=== PATIENT | male | born 1980 | race Caucasian/White ===

== ENCOUNTER 2016-02-14 11:46 | Inpatient (IN) | payer OTHER ==
[~2016-02-14] VITALS: Ht 180.3 cm; Wt 79.4 kg
[~2016-02-14 11:46] MED LIST: CARBIDOPA/LEVOD1 TA1 PO; DICYCLOMINE HCL20 MG PO; DILANTIN100 MG PO; METHOCARBAMOL750 M1 PO; PREDNICOT20 MG PO; TRAZODONE50 MG PO; VICO10300 PO; ZITHROMAX Z PA250 MG PO
[2016-02-14 13:34] LABS: BILIRUBIN NEGATIVE (NEGATIVE); BLOOD NEGATIVE (NEGATIVE); CLARITY SL CLOUDY (CLEAR); COLOR YELLOW (YELLOW); GLUCOSE NEGATIVE (NEGATIVE); KETONE NEGATIVE (NEGATIVE); LEUKO ESTERASE NEGATIVE (NEGATIVE); NITRITE NEGATIVE (NEGATIVE); PROTEIN NEGATIVE (NEGATIVE); SPECIFIC GRAVITY 1.025 (1.005-1.030)
[2016-02-14 13:39] LABS: URINE AMPHETAMINES < 1000 (1000ng/ml); URINE BARBITURATES < 200 (200ng/ml); URINE COCAINE < 300 (300ng/ml)
[2016-02-14 13:55] LABS: URINE REFLEX COMMENT NO (NO)
[2016-02-14 14:15] LABS: BASO # 0.1 10*3/uL (0.0-0.1); BASO % 0.6 % (0.0-1.0); EOS # 0.3 10*3/uL (0.0-0.4); EOS % 2.9 % (1.0-4.0); HEMATOCRIT 46.1 % (42.0-52.0); LYMPH # 3.5 10*3/uL (1.3-4.4); LYMPH % 35.3 % (27.0-41.0); MEAN CELL VOLUME 87.8 fl (80.0-94.0); MEAN CORPUSCULAR HGB 30.5 pg (27.0-31.0); MEAN CORPUSCULAR HGB CONC 34.7 g/dl (33.0-37.0); MEAN PLATELET VOLUME 11.4 fl (9.6-12.3); MONO # 0.9 10*3/uL (0.1-1.0); MONO % 8.7 % (3.0-9.0); NEUT # 5.2 10*3/uL (2.3-7.9); NEUT % 52.2 % (47.0-73.0); PLATELET COUNT AUTOMATED 261 10*3/uL (130-400); RED BLOOD COUNT 5.25 10*6/uL (4.50-5.90); RED CELL DISTRI WIDTH 12.3 % (0-14.5)
[2016-02-14 14:28] LABS: INTERNATIONAL NORM RATIO 0.9 (2.0-3.5); PROTHROMBIN TIME 9.9 SECONDS (9.0-12.4)
[2016-02-14 14:33] LABS: ALBUMIN 3.3 gm/dl (3.1-4.5); ALKALINE PHOSPHATASE 89 U/L (45-117); BILIRUBIN, TOTAL 0.3 mg/dl (0.2-1.0); BUN 17 mg/dl (7-24); CARBON DIOXIDE 26 mmol/L (21-32); CHLORIDE 108 mmol/L (98-107); EST GLOM FILT AFRICAN AMERICAN > 60 ml/min; GLUCOSE 94 mg/dL (65-99); POTASSIUM 3.6 mmol/L (3.5-5.1); SGOT/AST 31 IU/L (3-35); SGPT/ALT 35 U/L (12-78); SODIUM 142 mmol/L (136-145); TOTAL PROTEIN 6.6 gm/dL (6.4-8.2)
[2016-02-14 16:00] VITALS: BP 138/73
[2016-02-14 20:00] VITALS: BP 132/63
[2016-02-15] VITALS: BP 126/76
[2016-02-15 04:00] VITALS: BP 105/64
[2016-02-15 07:06] LABS: HIV 1+2 AB + HIV1 P24 AG Non Reactive (Non Reactive)
[2016-02-15 08:00] VITALS: BP 96/60
[2016-02-15 08:12] LABS: HEPATITIS C VIRUS ANTIBODY >11.0 s/co (0.0-0.9)
[2016-02-15 12:48] VITALS: BP 116/58
[2016-02-15 16:00] VITALS: BP 124/67
[2016-02-15 20:00] VITALS: BP 152/93
[2016-02-16] VITALS: BP 142/86
[2016-02-16 04:00] VITALS: BP 136/88
[2016-02-16 08:00] VITALS: BP 120/80
[2016-02-16 12:00] VITALS: BP 125/83
[2016-02-16 16:00] VITALS: BP 137/78
[2016-02-16] MEDS ORDERED: CARBIDOPA/LEVOD1 TA1 PO (18:30)
[2016-02-16] MEDS ORDERED: ZOFRAN 4 MG ED2 TAB PO (18:30)
[2016-02-16] MEDS ORDERED: ATARAX,VISTARIL50 MG PO (18:30)
[2016-02-16 20:00] VITALS: BP 142/75
[2016-02-17 06:06] LABS: EST GLOM FILT AFRICAN AMERICAN > 60 ml/min
[2016-02-17 06:14] LABS: BASO # 0.1 10*3/uL (0.0-0.1); BASO % 0.7 % (0.0-1.0); EOS # 0.4 10*3/uL (0.0-0.4); HEMATOCRIT 43.4 % (42.0-52.0); LYMPH # 3.4 10*3/uL (1.3-4.4); LYMPH % 40.5 % (27.0-41.0); MEAN CELL VOLUME 87.9 fl (80.0-94.0); MEAN CORPUSCULAR HGB 30.4 pg (27.0-31.0); MEAN CORPUSCULAR HGB CONC 34.6 g/dl (33.0-37.0); MEAN PLATELET VOLUME 11.8 fl (9.6-12.3); MONO # 0.7 10*3/uL (0.1-1.0); MONO % 8.6 % (3.0-9.0); NEUT # 3.7 10*3/uL (2.3-7.9); NEUT % 44.7 % (47.0-73.0); PLATELET COUNT AUTOMATED 261 10*3/uL (130-400); RED BLOOD COUNT 4.94 10*6/uL (4.50-5.90); RED CELL DISTRI WIDTH 12.5 % (0-14.5); WHITE BLOOD COUNT 8.3 10*3/uL (4.8-10.8)
[2016-02-17 08:00] VITALS: BP 116/64
== END 2016-02-17 12:11 | disposition home or self-care (01) | DRG 897 ==
LOC: 5E 11:46
PROVIDERS: Hospitalist
DX: F11.23 Opioid dependence with withdrawal (principal); E44.0 Moderate protein-calorie malnutrition; E87.8 Other disorders of electrolyte and fluid balance, not elsewhere classified; F12.10 Cannabis abuse, uncomplicated; B19.20 Unspecified viral hepatitis C without hepatic coma; Z80.1 Family history of malignant neoplasm of trachea, bronchus and lung; Z82.49 Family history of ischemic heart disease and other diseases of the circulatory system; Z72.0 Tobacco use; Z68.24 Body mass index [BMI] 24.0-24.9, adult

== ENCOUNTER → 2019-08-10 | Outpatient (CLI) | payer OTHER ==
[~2019-08-10] MED LIST changes: +ATARAX,VISTARIL50 MG PO; +BUPRENORPHINE HY8 MG SL; +GOOD SENSE ASPI81 M1 PO; +ZOFRAN 4 MG ED2 TAB PO
--- NOTE | 2019-08-10 07:00 | NUR ---
INFORMED CONSENT OBTAINED FOR EXERCISE STRESS ECHO WITH DR. GAGE. RESTING EKG NSR WITH A SUPINE HR OF 77 WITH BP OF 138/74 AND HR OF 95 WITH BP OF 128/80 IN STANDING POSITION. PT COMPLETED STAGE III OF A 2:00 JEFF PROTOCOL WITH A TOTAL EXERCISE TIME OF 6:00. REACHED A PEAK HR OF 166 WHICH IS 91% OF PREDICTED MAX WITH A PEAK BP OF 158/80. HAD NO CHEST PAIN OR ANY EKG CHANGES. TEST TERMINATED BECAUSE OF FATIGUE. SEE ECHO REPORT. NEGATIVE EXERCISE STRESS ECHO. HAS AN AVERAGE EXERCISE TOLERANCE. LAST RECOVERY HR OF 90 WITH BP OF 140/58. IV DISCONNECTED AND DISCHARGED IN STABLE CONDITION.
== END | disposition home or self-care (01) ==
LOC: CARD 00:28
DX: R07.89 Other chest pain (principal)

== ENCOUNTER → 2020-06-16 | Outpatient (CLI) | payer OTHER | END | disposition home or self-care (01) | LOC: CARD 06-09 09:00 | PROVIDERS: ATTEND Nurse Practitioner Family | DX: R00.2 Palpitations (principal) ==